=== PATIENT | female | born 1955 | race Caucasian/White ===

== ENCOUNTER 2021-06-08 00:44 | Day surgery (SDC) | payer MEDICARE, SELFPAY ==
[2021-06-07 09:02] VITALS: BMI 26.2
[2021-06-08 08:00] VITALS: BP 146/87; PULSE 63; RESP 18; TEMP 36.8; O2SAT 95; BMI 26.2
--- NOTE | 2021-06-08 09:01 | PM.OP ---
Procedure Note - Brief Procedure Note - Brief Date of procedure: 06/08/21 Pre-op diagnosis: Loop Recorder End of Service Procedure performed: Loop recorder explantation of old device and implant of new loop recorder Description of procedure: Brief history present illness: Patient is a very pleasant 65-year-old female with a past medical history significant for hypertension, history of TIA, mixed dyslipidemia status post loop recorder implantation with device now end of service scheduled for device explantation and implantation of new loop recorder. Extensive discussion was held with the patient and she desired a new device implanted see to further evaluate for atrial fibrillation and/or atrial flutter as possible cause for her history of TIA which remains unexplained to date. a difference in loop recorder company had previously been discussed and agreed upon with the patient given the longer battery duration and arrhythmia discrimination features of the [facility] device was selected. After verbal and written informed consent was obtained from the patient risks, benefits, and alternatives explained in detail the patient agreed to proceed with the plan of care as outlined above. Patient was evaluated at bedside in the Cardiac catheterization lab. Patient was placed the appropriate supine position. Left anterior chest wall was prepped and draped in the usual sterile fashion. Operators in appropriate sterile garb. The previously implanted loop recorder was identified at approximately the left 2nd to 3rd intercostal space. The location of the new loop recorder implant site was identified and marked prior to beginning. OLD LOOP RECORDER EXPLANTATION: Utilizing approximately 28 cc of 1% subcutaneous lidocaine the left anterior chest wall was then locally anesthetized. After local anesthesia was achieved, a 1 cm incision was made with a scalpel over the previous incision. Sharp and blunt dissection was then performed and the previously implanted loop recorder was extracted without complication. The pocket and [employer] device appeared clean and dry. The pocket was copiously flushed with Ancef solution. Excellent hemostasis was noted. NEW LOOP RECORDER IMPLANTATION: Subsequently, attention was then turned to implantation of the new loop recorder. Although we made every consideration to utilize the previous pocket, due to the high location and flat trajectory of the previously implanted loop recorder it was felt implant of the new loop recorder would be best placed a more ideal location at the 3rd to 4th intercostal space at an approximate 45 degree angle from the sternum would provide the best detection and fidelity. These decisions were also made with the input of the [facility] device telecommunications sales representative who was present throughout. The implant site was then locally anesthetized using a total of 46 cc of 1% lidocaine. Of note, it required a larger than average amount of Lidocaine to achieve adequate local anesthesia. Once adequate local anesthesia was achieved, an approximate 1 cm incision was made utilizing the included skin punch tool. The Biotronik introducer was then advanced subcutaneously, unlocked, and deployed easily and without complication. Manual pressure was held for least 10-15 min with excellent hemostasis. The device was then interrogated and revealed excellent fidelity and measured at 0.9mV and clear P wave activity. The Biotronik III ProMRI SN [id number] was implanted without complication. The implant incision was then approximated and closed using Exofin skin adhesive first. Once this was dried and stable, the explant incision was noted to be clean and dry prior approximating the edges and closing with Exofin skin adhesive. The incisions were then covered with a sterile dressing. Complications: None Implants: Biotronik III Pro AIMEE loop recorder Anesthesia: local Surgeon: Polo Arguelles MD Drains: No Packing: No Pathology: none sent Complication
[2021-06-08 10:37] VITALS: BP 155/93; PULSE 71; RESP 16; O2SAT 98
[2021-06-08 10:45] VITALS: BP 170/90; PULSE 72; RESP 16; O2SAT 98
[2021-06-08 11:20] VITALS: BP 160/87; PULSE 70; RESP 16; O2SAT 98
--- NOTE | 2021-06-08 11:25 | SUR.PHASEII ---
All D/C instructions reviewed with patient. Cassie Vaughn [employer]TRAS[employer] SEAMING MACHINE OPERATOR in to see patient, discussed with patient elevated BP and current stressors in her life. Discussed ways to manage stress at home. Post procedure follow up appt given at this time. All questions answered.
== END 2021-06-08 11:40 | disposition home or self-care (01) ==
PROVIDERS: Visit Provider Internal Medicine Cardiovascular Disease
PROC: (CPT 33286; principal; 2021-06-08 08:30)
PROC: (CPT 33285; 2021-06-08 08:30)
DX: Z45.09 Encounter for adjustment and management of other cardiac device (principal); I10 Essential (primary) hypertension; E78.2 Mixed hyperlipidemia; Z86.73 Personal history of transient ischemic attack (TIA), and cerebral infarction without residual deficits; F41.8 Other specified anxiety disorders; E07.9 Disorder of thyroid, unspecified; Z79.82 Long term (current) use of aspirin
CPT/HCPCS: 33285; 33286; C1764; J0690; J7040